=== PATIENT | female | born 1940 | race Caucasian/White ===

== ENCOUNTER → 2016-05-11 | Outpatient (CLI) | payer OTHER | END | disposition home or self-care (01) | LOC: PCVCIMAG 07:37 | PROVIDERS: ATTEND Internal Medicine Cardiovascular Disease | DX: I25.10 Atherosclerotic heart disease of native coronary artery without angina pectoris (principal); I35.0 Nonrheumatic aortic (valve) stenosis; R06.00 Dyspnea, unspecified; E78.5 Hyperlipidemia, unspecified; R09.89 Other specified symptoms and signs involving the circulatory and respiratory systems; I10 Essential (primary) hypertension; R93.1 Abnormal findings on diagnostic imaging of heart and coronary circulation | CPT/HCPCS: 78452; 80061; 93017; 93306; A9500; G0463 ==

== ENCOUNTER → 2016-05-24 | Outpatient (CLI) | payer OTHER | END | disposition home or self-care (01) | LOC: PCVCIMAG 10:45 | PROVIDERS: ATTEND Internal Medicine Cardiovascular Disease | DX: I65.23 Occlusion and stenosis of bilateral carotid arteries (principal); R09.89 Other specified symptoms and signs involving the circulatory and respiratory systems | CPT/HCPCS: 93880 ==

== ENCOUNTER → 2017-04-04 | Outpatient (CLI) | payer OTHER | END | disposition home or self-care (01) | LOC: PCVCIMAG 10:10 | DX: I08.3 Combined rheumatic disorders of mitral, aortic and tricuspid valves (principal); I10 Essential (primary) hypertension; E78.00 Pure hypercholesterolemia, unspecified; R93.1 Abnormal findings on diagnostic imaging of heart and coronary circulation; Z82.49 Family history of ischemic heart disease and other diseases of the circulatory system; Z79.899 Other long term (current) drug therapy | CPT/HCPCS: 93005; 93306; G0463 ==

== ENCOUNTER → 2018-01-16 | Outpatient (CLI) | payer OTHER | END | disposition home or self-care (01) | LOC: PCVCCLINIC 12:54 | PROVIDERS: ATTEND Internal Medicine Cardiovascular Disease | DX: I35.0 Nonrheumatic aortic (valve) stenosis (principal); I10 Essential (primary) hypertension; R09.89 Other specified symptoms and signs involving the circulatory and respiratory systems; E78.00 Pure hypercholesterolemia, unspecified; E78.5 Hyperlipidemia, unspecified; R94.31 Abnormal electrocardiogram [ECG] [EKG]; Z82.49 Family history of ischemic heart disease and other diseases of the circulatory system; Z79.899 Other long term (current) drug therapy | CPT/HCPCS: 80061; 93005; G0463 ==

== ENCOUNTER → 2018-05-07 | Outpatient (CLI) | payer OTHER ==
--- NOTE | 2018-05-07 10:14 | PCVCIMAG ---
APPROVED REPORT Indications Bruit Doppler Spectral Velocity Analysis PSV / EDVPSV / EDV ECA (R) 103 / 13 cm/sECA (L) 91 / 13 cm/s dICA (R) 80 / 28 cm/sdICA (L) 89 / 28 cm/s Jeff (R) 90 / 32 cm/smICA (L) 82 / 26 cm/s pICA (R) 83 / 23 cm/spICA (L) 87 / 19 cm/s Bulb (R) 82 / 14 cm/sBulb (L) 70 / 19 cm/s dCCA (R) 66 / 18 cm/sdCCA (L) 81 / 16 cm/s mCCA (R) 94 / 19 cm/smCCA (L) 81 / 20 cm/s Vert (R) 56 / 13 cm/sVert (L) 27 / 10 cm/s ICA/CCA 1.36ICA/CCA 1.10 Findings The right carotid bulb has moderate plaque. The right proximal internal carotid artery shows <40% stenosis. The right common carotid artery shows no significant stenosis. The right external carotid artery shows no significant stenosis. The left carotid bulb has moderate plaque. The left proximal internal carotid artery shows <40% stenosis. The left common carotid artery shows no significant stenosis. The left external carotid artery shows no significant stenosis. Conclusion 1. Right internal carotid artery stenosis (<40%) 2. Left internal carotid artery stenosis (<40%) 3. Antegrade vertebral flow
--- NOTE | 2018-05-07 13:38 | PCVCIMAG ---
APPROVED REPORT Study performed: 05/07/2018 11:05:29 EXAM: Comprehensive 2D, Doppler, and color-flow Echocardiogram Patient Location: Echo lab Room #: [id number]: routine BSA: 1.59 HR: 54 bpmBP: 104/68 mmHg Other Information Risk Factors: Cardiac Risk Factors: HTN, Hyperlipidemia, FHX of CAD Indications Aortic Valve Disease Hypertension/HDD 2D Dimensions IVSd: 8.32 (7-11mm)LVOT Diam: 20.44 (18-24mm) LVDd: 36.97 mm PWd: 7.90 (7-11mm)Ascending Ao: 30.85 (22-36mm) LVDs: 22.41 (25-40mm) Left Atrium: 28.56 (27-40mm) Aortic Root: 19.73 mm LV Single Plane 4CH: 49.05 % LV Single Plane 2CH: 61.46 % Biplane EF: 56.1 % Volumes Left Atrial Volume (Systole) Single Plane 4CH: 58.96 mLSingle Plane 2CH: 53.86 mL Biplane LA Volume: 64.00 mLLA ESV Index: 40.00 mL/m2 Aortic Valve AoV Peak Reynaldo.: 2.99 m/s AO Peak Gr.: 36.07 mmHgLVOT Max P.23 mmHg AO Mean Gr.: 19.69 mmHg AO V2 Mean: 2.10 m/sLVOT Max V: 0.74 m/s AO V2 VTI: 82.94 cm KELLY Vmax: 0.81 cm2 Mitral Valve E/A Ratio: 1.3 MV Decel. Time: 173.65 ms MV E Max Reynaldo.: 0.89 m/s MV A Reynaldo.: 0.66 m/s MV PHT: 50.36 ms TDI E/Lateral E': 7.42E/Medial E': 12.71 Medial E' Reynaldo.: 0.07 m/s Lateral E' Reynaldo.: 0.12 m/s Pulmonary Valve PV Peak Reynaldo.: 0.72 m/sPV Peak Gr.: 2.08 mmHg Pulmonary Vein P Vein S: 0.48 m/sP Vein A: 0.29 m/s P Vein D: 0.62 m/sP Vein A Dur.: 96.9 msec P Vein S/D Ratio: 0.77 Tricuspid Valve TR Peak Reynaldo.: 2.60 m/s TR Peak Gr.: 27.01 mmHg TV Vmax: 0.49 m/sPA Pressure: 34.00 mmHg Left Ventricle The left ventricle is normal size. There is normal LV segmental wall motion. There is normal left ventricular wall thickness. Left ventricular systolic function is normal. The left ventricular ejection fraction is within the normal range.55%ef The left ventricular diastolic function is normal. Right Ventricle The right ventricle is normal size. The right ventricular systolic function is normal. Atria Left atrium is mildly dilated. The right atrium size is normal. Aortic Valve Aortic valve is trileaflet. Aortic valve leaflets are severely sclerotic with markedly decreased opening. No aortic regurgitation is present. Severe aortic stenosis. Highest mean aortic valve gradient is 19.7_mmHg. Peak aortic valve gradient is _35.8 mmHg. Calculated KELLY by the continuity equation is 0.8 cm2. Mitral Valve The mitral valve is normal in structure. Mild mitral regurgitation. No evidence of mitral valve stenosis. Tricuspid Valve The tricuspid valve is normal in structure. Trace to mild tricuspid regurgitation with a PA pressure of34 mg Mild pulmonary hypertension.. Pulmonic Valve The pulmonary valve is normal in structure. Mild pulmonic regurgitation. Great Vessels The aortic root is normal in size. The ascending aorta is normal in size. Aortic arch is normal in caliber. IVC is normal in size and collapses >50% with inspiration. Pericardium There is no pericardial effusion. There is no pleural effusion. <Conclusion> The left ventricle is normal size. The left ventricular diastolic function is normal. Left ventricular systolic function is normal. The left ventricular ejection fraction is within the normal range.55%ef The right ventricle is normal size. Left atrium is mildly dilated. Aortic valve is trileaflet. Aortic valve leaflets are severely sclerotic with markedly decreased opening. Severe aortic stenosis. Highest mean aortic valve gradient is 19.7_mmHg. Peak aortic valve gradient is _35.8 mmHg. Calculated KELLY by the continuity equation is 0.8 cm2. Mild mitral regurgitation. Trace to mild tricuspid regurgitation with a PA pressure of34 mg Mild pulmonary hypertension.. The aortic root is normal in size. There is no pericardial effusion.
== END | disposition home or self-care (01) ==
LOC: PCVCIMAG 09:34
PROVIDERS: ATTEND Internal Medicine Cardiovascular Disease
DX: I65.23 Occlusion and stenosis of bilateral carotid arteries (principal); R09.89 Other specified symptoms and signs involving the circulatory and respiratory systems; I34.0 Nonrheumatic mitral (valve) insufficiency; I35.0 Nonrheumatic aortic (valve) stenosis; I10 Essential (primary) hypertension; E78.00 Pure hypercholesterolemia, unspecified; I27.20 Pulmonary hypertension, unspecified; Z82.49 Family history of ischemic heart disease and other diseases of the circulatory system; Z90.13 Acquired absence of bilateral breasts and nipples; Z98.890 Other specified postprocedural states; Z87.898 Personal history of other specified conditions
CPT/HCPCS: 93306; 93880

== ENCOUNTER → 2018-10-14 | Outpatient (CLI) | payer OTHER ==
--- NOTE | 2018-10-14 15:48 | PCVCIMAG ---
APPROVED REPORT Study performed: 10/14/2018 11:31:45 Exam: Stress Echocardiogram Indication: Hyperlipidemia, Hypertension, Aortic Stenosis Patient Location: Echo lab Stress Nurse: Azucena Melchor RN Status: routine Ht: 5 ft 2 in HR: 66 bpm BP: 150/80 mmHg Rhythm: NSR Procedure The patient underwent an Exercise Stress Test using the Carlin Protocol. Blood pressure, heart rate, and EKG were monitored. An Echocardiogram was performed by cytogenetic technician in four stages in quad fashion. At peak stress, four selected images were obtained and placed side by side with resting images for comparison. Stress Test Details Stress Test: Exercise stress testing was performed using a Carlin protocol. HR Resting HR: 66 bpmMax Heart Rate (APMHR): 143 bpm Max HR Achieved: 122 bpmTarget HR (85% APMHR): 121 bpm % of APMHR: 85 Recovery HR: 69 bpm HR response to stress: Normal HR response to stress BP Resting BP: 150/80 mmHg Max BP: 180/82 mmHg Recovery BP: 122/80 mmHg BP response to stress: Normal blood pressure response to stress. ECG Resting ECG: Sinus Rhythm Stress ECG: Incomplete left bundle branch block ST Change: Non-specific ST-T changes Recovery ECG: Sinus Rhythm Clinical Reason for Termination: Maximal effort Exercise duration: 8 min 00 sec Highest Stage Achieved: Stage 3: 3.4 mph at 14% grade. Exercise capacity: 10.10 METs Overall Exercise Capacity for Age: Normal Pre-Stress Echo The resting Echocardiogram showed normal left ventricular contractility with an estimated Ejection Fraction of about 50-55%. Normal wall motion in all segments on baseline images. Post-Stress Echo The stress Echocardiogram showed normal left ventricular contractility with an estimated Ejection Fraction of about 55-60%. Normal augmentation of wall motion in all segments on post stress images. Clinical No clinical or ECG evidence for ischemia. Conclusion Clinical Response: Non-ischemic Exercise Capacity: Average The left ventricle is normal in size and wall thickness in both the rest and stress images. Aortic peak gradient is 38mmHg. Mean gradient is 21mmHg. Aortic Valve area is 0.8cm2. Other Information Study Quality: Adequate <Conclusion> The left ventricle is normal in size and wall thickness in both the rest and stress images. Aortic peak gradient is 38mmHg. Mean gradient is 21mmHg. Aortic Valve area is 0.8cm2.
== END | disposition home or self-care (01) ==
LOC: PCVCIMAG 11:13
PROVIDERS: ATTEND Internal Medicine Cardiovascular Disease
DX: I35.0 Nonrheumatic aortic (valve) stenosis (principal); E78.5 Hyperlipidemia, unspecified; I10 Essential (primary) hypertension; Z82.49 Family history of ischemic heart disease and other diseases of the circulatory system; Z88.1 Allergy status to other antibiotic agents
CPT/HCPCS: 93325; 93351